=== PATIENT | male | born 1950 | race Hispanic/Latino ===

== ENCOUNTER 2019-09-30 15:34 | Outpatient (CLI) | payer MEDICARE ==
--- NOTE | 2019-09-30 16:37 | CT ---
CT PULMONARY LUNG SCAN: Indication: Former smoker, on and off for 30+ years. Smoked one pack per day. Patient complaining of minor upper respiratory illness. Comparison: CT pulmonary lung scan, 12-16-14. FINDINGS: There are areas of nonspecific subsegmental volume loss seen within both lungs. No confluent airspace consolidation is evident. No suspicious pulmonary nodule is identified. No pleural effusion is noted . Visualized upper abdomen reveals no acute abnormality. There are coronary artery and thoracic aorta calcifications. No definite acute osseous abnormality is evident. There are scattered degenerative and nonspecific ch nigel. IMPRESSION: Lung rads category 1 - negative. Recommend annual low-dose lung cancer screening for continued survei llance. POS: [facility]
== END 2019-09-30 15:35 | disposition home or self-care (01) ==
LOC: CT 15:34
PROVIDERS: ATTEND Family Medicine
DX: Z12.2 Encounter for screening for malignant neoplasm of respiratory organs (principal); Z87.891 Personal history of nicotine dependence
CPT/HCPCS: G0297

== ENCOUNTER 2019-12-30 12:40 | Emergency (ER) | payer BC, MEDICARE, OTHER | END 2019-12-30 13:10 | disposition home or self-care (01) | LOC: ERS 12:40 | DX: M79.10 Myalgia, unspecified site (principal); E11.9 Type 2 diabetes mellitus without complications; E78.5 Hyperlipidemia, unspecified; I10 Essential (primary) hypertension | CPT/HCPCS: 99283 ==

== ENCOUNTER 2020-03-13 15:28 | Outpatient (CLI) | payer MEDICARE ==
--- NOTE | 2020-03-13 18:05 | ULT ---
EXAM: RENAL ULTRASOUND: 03/13/20 HISTORY: Chronic kidney disease. COMPARISON: None. FINDINGS: Right kidney: Mild renal cortical thinning. No cortical masses or hydronephrosis. Right kidney measur es 4.9 x 9.2 x 4.6 cm. There is a 0.8 cm x 0.8 cm hypoechoic focus in the lower pole cortex which is too small to further characterize. Left kidney: There is mild cortical thinning. No definite solid cortical masses. No hydronephrosis. T here is anechoic focus in the left renal cortex measuring 1.7 x 1.8 x 1.7 cm with true transmission, compatible with a cyst. Left kidney measures 5.7 x 10.6 x 5.7 cm. There is a small soft tissue focus in the dependent portion of the bladder measuring 1.6 x 0.6 x 1.1 cm. IMPRESSION: 1. No hydronephrosis. 2. Indeterminate lesion in the right kidney. 3. Left renal cyst. 4. Abnormal soft tissue echotexture in the dependent portion of the urinary bladder. Findings ma y represent a small focus of debris. However, bladder neoplasm cannot be excluded. Consider urology c onsultation for further evaluation of the kidneys and urinary bladder. Code T POS: [facility]
== END 2020-03-13 15:29 | disposition home or self-care (01) ==
LOC: BICULT 15:28
PROVIDERS: ATTEND Family Medicine
DX: N18.3 Chronic kidney disease, stage 3 (moderate) (principal); N28.1 Cyst of kidney, acquired; N32.89 Other specified disorders of bladder
CPT/HCPCS: 76770

== ENCOUNTER 2020-07-20 12:30 | Emergency (ER) | payer MEDICARE, OTHER ==
[2020-07-20] MEDS ORDERED: Ketorolac Tromethamine 30 MG/ML VIAL ONE (13:17)
[2020-07-20] MEDS ORDERED: traMADol HCl 50 MG TAB ONE (13:17)
--- NOTE | 2020-07-20 13:47 | RAD ---
EXAM: Left rib series with chest x-ray HISTORY: Left chest pain after fall COMPARISON: None FINDINGS: Single view of the chest shows a normal sized cardiomediastinal silhouette. Atheroscleroti c calcifications are seen in the aorta. There is no evidence of consolidation, mass, or pleural effusion. Multiple views of the left ribs shows no evidence of displaced rib fracture. No underlying pleural th ickening or pneumothorax are seen. IMPRESSION: 1. No evidence of displaced rib fracture. 2. No evidence of acute cardiopulmonary disease.
== END 2020-07-20 14:12 | disposition home or self-care (01) ==
LOC: ERS 12:30
DX: S20.212A Contusion of left front wall of thorax, initial encounter (principal); E78.5 Hyperlipidemia, unspecified; I10 Essential (primary) hypertension; F32.9 Major depressive disorder, single episode, unspecified; Z87.891 Personal history of nicotine dependence; W01.0XXA Fall on same level from slipping, tripping and stumbling without subsequent striking against object, initial encounter
CPT/HCPCS: 96372; 99283; J1885

== ENCOUNTER 2020-12-25 15:15 | Outpatient (CLI) | payer MEDICARE | END 2020-12-25 15:16 | disposition home or self-care (01) | LOC: BICCT 15:15 | PROVIDERS: ATTEND Family Medicine | DX: Z12.2 Encounter for screening for malignant neoplasm of respiratory organs (principal); Z87.891 Personal history of nicotine dependence | CPT/HCPCS: 71271 ==

== ENCOUNTER 2023-10-23 15:44 | Outpatient (CLI) | payer MEDICARE | END 2023-10-23 15:45 | disposition home or self-care (01) | LOC: BICULT 15:44 | PROVIDERS: ATTEND Family Medicine | DX: I73.9 Peripheral vascular disease, unspecified (principal) | CPT/HCPCS: 93923 ==